=== PATIENT | female | born 1960 | race Caucasian/White ===

== ENCOUNTER 2017-10-24 20:14 | Observation (INO) | payer OTHER, SELFPAY ==
[~2017-10-24] VITALS: Ht 157.5 cm; Wt 65.0 kg
[2017-10-24 20:50] LABS: BASOPHILS # (AUTO) 0.02 x10^3/uL (0-0.1); BASOPHILS % (AUTO) 0 % (0-1); EOSINOPHILS # (AUTO) 0.09 x10^3/uL (0-0.4); EOSINOPHILS % (AUTO) 1 % (1-7); LYMPHOCYTES # (AUTO) 2.51 x10^3/uL (1-3.4); LYMPHOCYTES % (AUTO) 32 % (22-44); MD NO; MEAN CORPUSCULAR HEMOGLOBIN 34.2 pg (27.0-34.8); MEAN CORPUSCULAR HGB CONC 33.6 g/dL (32.4-35.8); MEAN CORPUSCULAR VOLUME 101.8 fL (80-100); MONOCYTES # (AUTO) 0.76 x10^3/uL (0.2-0.8); MONOCYTES % (AUTO) 10 % (2-9); NEUTROPHILS # (AUTO) 4.45 x10^3/uL (1.8-6.8); NEUTROPHILS % (AUTO) 57 % (42-75); PLATELET COUNT 428 x10^3/uL (130-400); RED BLOOD COUNT 4.32 x10^6/uL (3.82-5.3); RED CELL DISTRIBUTION WIDTH 14.3 % (9.6-15.2)
[2017-10-24 21:00] LABS: ALBUMIN 4.5 g/dL (3.4-5.0); ANION GAP 12 mmol/L (5-15); CALCIUM 9.2 mg/dL (8.5-10.1); CHLORIDE 102 mmol/L (98-107)
[2017-10-24 21:02] LABS: ACETAMINOPHEN < 2 mcg/mL (10-30); SALICYLATE LEVEL < 1.7 mg/dL (2.8-20.0)
[2017-10-24 23:08] LABS: AMPHETAMINE SCREEN, URINE Negative (Negative); BARBITURATE SCREEN, URINE Negative (Negative); BENZODIAZEPINE SCREEN, URINE Negative (Negative); CANNABINOID SCREEN, URINE Negative (Negative); COCAINE SCREEN, URINE Negative (Negative); METHADONE SCREEN, URINE Negative (Negative); OPIATE SCREEN, URINE Negative (Negative)
[2017-10-25] MEDS ORDERED: ACETAMINOPHEN 325 MG TABLET PO PRN (06:00)
[2017-10-25] MEDS ORDERED: LORazepam 2 MG/ML, 1ML IM PRN (06:00)
[2017-10-25] MEDS ORDERED: LORazepam 1MG TABLET PO PRN (06:00)
[2017-10-25] MEDS ORDERED: ONDANSETRON ODT 4 MG PO PRN (06:00)
[2017-10-25] MEDS ORDERED: DOCUSATE 100 MG CAPSULE PO PRN (06:00)
[2017-10-25] MEDS ORDERED: POTASSIUM CHLORIDE 20 MEQ TAB.ER.PRT PO ONE (06:00)
[2017-10-25 06:52] LABS: HEMOGLOBIN A1C 5.9 % (4.2-6.3)
[2017-10-25 07:04] LABS: CHOL/HDL RATIO 2.6; FREE T4 (FREE THYROXINE) 0.73 ng/dL (0.76-1.46); LDL/HDL RATIO 1.5 (0.5-3.0); THYROID STIMULATING HORMONE 15.5 mIU/L (0.358-3.740)
[2017-10-25] MEDS ORDERED: POTASSIUM CHLORIDE 20 MEQ TAB.ER.PRT ONE (08:27)
[2017-10-25] MEDS: LEVOTHYROXINE 50 MCG TABLET PO SCH (08:39)
[2017-10-25] MEDS: MULTIVITAMIN 1 TABLET PO SCH (08:39)
[2017-10-25] MEDS: LOSARTAN 25MG TABLET PO SCH (08:39)
[2017-10-25 18:16] VITALS: BP 151/101
[2017-10-25 18:20] LABS: CULTURE INDICATED? YES; MICROSCOPIC INDICATED
[2017-10-25 19:34] VITALS: BP 123/87
[2017-10-26] MEDS: LEVOTHYROXINE 50 MCG TABLET PO SCH (05:02)
[2017-10-26 07:33] VITALS: BP 147/98
[2017-10-26] MEDS: LOSARTAN 25MG TABLET PO SCH (08:29)
[2017-10-26] MEDS: MULTIVITAMIN 1 TABLET PO SCH (08:29)
[2017-10-26 19:45] VITALS: BP 156/102
[2017-10-27] MEDS: LEVOTHYROXINE 50 MCG TABLET PO SCH (04:59)
[2017-10-27 05:00] VITALS: BP 165/121
[2017-10-27 07:45] VITALS: BP 116/87
[2017-10-27] MEDS: LOSARTAN 25MG TABLET PO SCH (09:57)
[2017-10-27] MEDS: MULTIVITAMIN 1 TABLET PO SCH (09:57)
[2017-10-27 19:52] VITALS: BP 148/87
[2017-10-28] MEDS: LEVOTHYROXINE 50 MCG TABLET PO SCH (06:09)
[2017-10-28 07:32] VITALS: BP 128/95
[2017-10-28] MEDS: LOSARTAN 25MG TABLET PO SCH (09:17)
[2017-10-28] MEDS: MULTIVITAMIN 1 TABLET PO SCH (09:17)
[2017-10-28 19:43] VITALS: BP 129/87
[2017-10-29] MEDS: LEVOTHYROXINE 50 MCG TABLET PO SCH (07:00)
[2017-10-29 08:20] VITALS: BP 124/78
[2017-10-29] MEDS: MULTIVITAMIN 1 TABLET PO SCH (09:10)
[2017-10-29] MEDS: LOSARTAN 25MG TABLET PO SCH (09:10)
[2017-10-29] MEDS ORDERED: ERGOCALCIFEROL 50,000 UNIT CAPSULE PO SCH (13:00)
[2017-10-29 20:02] VITALS: BP 139/82
[2017-10-30 07:00] VITALS: BP 134/99
[2017-10-30] MEDS: LEVOTHYROXINE 50 MCG TABLET PO SCH (07:37)
[2017-10-30] MEDS: LOSARTAN 25MG TABLET PO SCH (09:00)
[2017-10-30] MEDS: MULTIVITAMIN 1 TABLET PO SCH (09:51)
[2017-10-30 19:31] VITALS: BP 134/99
[2017-10-31] MEDS: LEVOTHYROXINE 50 MCG TABLET PO SCH (06:07)
[2017-10-31 07:42] VITALS: BP 146/97
[2017-10-31] MEDS: MULTIVITAMIN 1 TABLET PO SCH (08:33)
[2017-10-31] MEDS: LOSARTAN 25MG TABLET PO SCH (08:34)
[2017-10-31 19:42] VITALS: BP 129/87
[2017-11-01] MEDS: LEVOTHYROXINE 50 MCG TABLET PO SCH (05:38)
[2017-11-01 08:02] VITALS: BP 142/93
[2017-11-01] MEDS: MULTIVITAMIN 1 TABLET PO SCH (08:20)
[2017-11-01] MEDS: LOSARTAN 25MG TABLET PO SCH (08:21)
[2017-11-01] MEDS ORDERED: LEVO50TA PO (10:41)
[2017-11-01] MEDS ORDERED: LOSA25TA2 PO (10:41)
[2017-11-01] MEDS ORDERED: ERGO500017 PO (10:43)
== END 2017-11-01 18:33 | disposition home or self-care (01) ==
LOC: ED 21:41 → EDIP 10-25 03:46 → 2N 10-25 17:29
PROVIDERS: ADMIT Internal Medicine; ATTEND Internal Medicine
DX: R45.851 Suicidal ideations (principal); E03.9 Hypothyroidism, unspecified; E87.6 Hypokalemia; D75.89 Other specified diseases of blood and blood-forming organs; E55.9 Vitamin D deficiency, unspecified; F10.129 Alcohol abuse with intoxication, unspecified; F32.9 Major depressive disorder, single episode, unspecified; F41.9 Anxiety disorder, unspecified; I10 Essential (primary) hypertension; Z87.891 Personal history of nicotine dependence
CPT/HCPCS: 36415; 80048; 80061; 80307; 80329; 81001; 82040; 82306; 82607; 83036; 84439; 84443; 85025; 87086; 99285; G0378; G0480